=== PATIENT | female | born 1985 | race American Indian/Alaskan Native ===

== ENCOUNTER 2017-01-28 08:23 | Emergency (ER) | payer OTHER ==
[2017-01-28 08:33] VITALS: BMI 25.8
[2017-01-28 08:34] VITALS: BP 135/82; PULSE 94; RESP 18; TEMP 98.3; O2SAT 100
[2017-01-28] MEDS ORDERED: Sodium Chloride 0.9% 1,000 ML IV STA (08:39)
--- NOTE | 2017-01-28 08:48 | ED PDOC ---
Arrival/HPI - General Time Seen by Provider: 01/28/17 08:34 - History of Present Illness Narrative History of Present Illness (Text): 01/28/17 08:35 Serena Schilling is a 31 year old female, whose past medical includes fibroids, who presents to the emergency department complaining of cramps since yesterday. Patient states her pain is consistent with prior menstrual cramps and notes she just got her period yesterday, however her cramps are not normally this bad. Patient notes that she experiences associated vomiting, which she describes to be yellow. Patient has taken Tylenol last night which brought little relief. Patient also states that she had just started taking control pills five days ago. Patient denies any diarrhea, urinary symptoms , or any other complaint at this time. Patient endorses that she is an occasional drinker. PMD: Dr. Julian Buyer Assistant: Dr. Sharri Gan Time/Duration: 24 hours Symptom Onset: Gradual Symptom Course: Unchanged Severity Level: Mild Activities at Onset: Rest Context: Home Associated Symptoms (Text): 01/28/17 09:10 Patient's menstrual cycle began yesterday. She complains of severe menstrual cramps beginning yesterday. She states that she has cramps like this every other cycle. History of uterine fibroids. She also has some nausea and vomiting. She began control pills 5 days ago. No fever or chills. No injury or trauma. Past Medical History - Provider Review Nursing Documentation Reviewed: Yes - Infectious Disease Hx of Infectious Diseases: None - Tetanus Immunization Tetanus Immunization: Unknown - Past Medical History Past Medical History: No Previous - Cardiac Hx Cardiac Disorders: No - Hematological/Oncological Hx Anemia: Yes - Musculoskeletal/Rheumatological Hx Back Pain: Yes - Genitourinary/Gynecological Other/Comment: FIBROIDS - Psychiatric Hx Psychophysiologic Disorder: No Hx Depression: No Hx Emotional Abuse: No Hx Physical Abuse: No Hx Substance Use: No - Past Surgical History Past Surgical History: No Previous - Anesthesia Hx Anesthesia: Yes Hx Anesthesia Reactions: No Hx Malignant Hyperthermia: No - Suicidal Assessment Feels Threatened In Home Enviroment: No Family/Social History - Physician Review Nursing Documentation Reviewed: Yes Family/Social History: No Known Family HX Smoking Status: Never Smoked Hx Alcohol Use: Yes Hx Substance Use: No Hx Substance Use Treatment: No Allergies/Home Meds Allergies/Adverse Reactions: Allergies No Known Allergies Allergy (Verified 05/25/16 06:49) Review of Systems - Physician Review All systems were reviewed & negative as marked: Yes - Review of Systems Constitutional: absent: Fevers, Night Sweats Eyes: absent: Vision Changes ENT: absent: Hearing Changes Respiratory: absent: SOB, Cough Cardiovascular: absent: Chest Pain Gastrointestinal: Abdominal Pain (Cramps), Nausea, Vomiting Genitourinary Female: absent: Dysuria, Frequency, Hematuria, Urine Output Changes Musculoskeletal: absent: Back Pain, Neck Pain Skin: absent: Pruritis Neurological: absent: Headache, Dizziness Endocrine: absent: Polyuria Hemo/Lymphatic: absent: Easy Bleeding Psychiatric: absent: Depression Physical Exam Vital Signs Reviewed: Yes Vital Signs Temp Pulse Resp BP Pulse Ox 01/28/17 08:34 98.3 F 94 H 18 135/82 100 Temperature: Afebrile Blood Pressure: Normal Pulse: Regular Respiratory Rate: Normal Appearance: Positive for: Well-Appearing, Non-Toxic, Uncomfortable Pain Distress: Moderate Mental Status: Positive for: Alert and Oriented X 3 - Systems Exam Head: Present: Atraumatic, Normocephalic Pupils: Present: PERRL Extroacular Muscles: Present: EOMI Conjunctiva: Present: Normal Mouth: Present: Moist Mucous Membranes Pharnyx: No: ERYTHEMA, EXUDATE, TONSILS ENLARGED Respiratory/Chest: Present: Clear to Auscultation, Good Air Exchange. No: Respiratory Distress, Accessory Muscle Use Cardiovascular: Present: Regular Rate and Rhythm, Normal S1, S2. No: Murmurs Abdomen: Present: Normal Bowel Sounds, Scars. No: Tenderness, Distention, Peritoneal Signs, Rebound, Guarding Upper Extremity: Present: Normal Inspection. No: Cyanosis, Edema Lower Extremity: Present: Normal Inspection. No: Edema Neurological: Present: GCS=15, CN II-XII Intact, Speech Normal, Motor Func Grossly Intact Skin: Present: Warm, Dry, Normal Color. No: Rashes Psychiatric: Present: Alert, Oriented x 3, Normal Insight, Normal Concentration Medical Decision Making ED Course and Treatment: 01/28/17 08:35 Impression: 31 year old female complaining of menstrual cramps since yesterday. Plan: -- Urinalysis, HCG -- Labs -- Toradol, Zofran, and IV Fluids -- Reassess and disposition Prior Visits: Notes and results from previous visits were reviewed. Patient last seen in ED on 11/04/16 for lower abdominal pain for approximately 1 hour. Patient was discharged home. Progress Notes: 01/28/17 10:04 Symptoms mildly improved 01/28/17 10:08 No vomiting while in the emergency department - Lab Interpretations Lab Results: 01/28/17 08:40 01/28/17 08:40 Lab Results 01/28/17 08:40: Sodium 136, Potassium 3.9, Chloride 103, Carbon Dioxide 27, Anion Gap 10, BUN 13, Creatinine 0.8, Est GFR ( Amer) > 60, Est GFR (Non- Af Amer) > 60, Random Glucose 91, Calcium 9.8, Total Bilirubin 0.2, AST 25, ALT 24, Alkaline Phosphatase 77, Total Protein 7.7, Albumin 4.1, Globulin 3.7, Albumin/Globulin Ratio 1.1, Lipase 94 01/28/17 08:40: Urine Color Yellow, Urine Appearance Clear, Urine pH 6.0, Ur Specific [place] 1.020, Urine Protein Negative, Urine Glucose (UA) Negative, Urine Ketones Negative, Urine Blood Large H, Urine Nitrate Negative, Urine Bilirubin Negative, Urine Urobilinogen 0.2, Ur Leukocyte Esterase Trace H, Urine RBC Tntc, Urine WBC 2 - 5, Ur Epithelial Cells 4 - 5, Urine Bacteria Mod, Urine HCG, Qual Negative 01/28/17 08:40: WBC 16.3 H, RBC 4.26, Hgb 11.9 L, Hct 36.6, MCV 85.9, MCH 27.9, MCHC 32.5, RDW 14.9 H, Plt Count 314, MPV 9.6, Gran % 88.5 H, Lymph % (Auto) 6.4 L, [place] % (Auto) 4.7, Eos % (Auto) 0.2 L, Baso % (Auto) 0.2, Gran # 14.38 H , Lymph # 1.0 L, [place] # 0.8 H, Eos # 0.0, Baso # 0.03 I have reviewed the lab results: Yes - Medication Orders Current Medication Orders: Discontinued Medications Sodium Chloride (Sodium Chloride 0.9%) 1,000 mls @ 1,000 mls/hr IV .Q1H STA Stop: 01/28/17 09:38 Last Admin: 01/28/17 08:55 Dose: 1,000 mls/hr Ketorolac Tromethamine (Toradol) 30 mg IVP STAT STA Stop: 01/28/17 08:40 Last Admin: 01/28/17 08:55 Dose: 30 mg Ondansetron HCl (Zofran Inj) 4 mg IVP STAT STA Stop: 01/28/17 08:40 - Scribe Statement The provider has reviewed the documentation as recorded by the Moreliaibstanislav Reyes Provider Scribe Attestation: All medical record entries made by the Scribe were at my direction and personally dictated by me. I have reviewed the chart and agree that the record accurately reflects my personal performance of the history, physical exam, medical decision making, and the department course for this patient. I have also personally directed, reviewed, and agree with the discharge instructions and disposition. Disposition/Present on Arrival - Present on Arrival Any Indicators Present on Arrival: No History of DVT/PE: No History of Uncontrolled Diabetes: No Urinary Catheter: No History of Decub. Ulcer: No History Surgical Site Infection Following: None - Disposition Have Diagnosis and Disposition been Completed?: Yes Diagnosis: Dysmenorrhea, Leukocytosis, Nausea and vomiting Disposition: HOME/ ROUTINE Disposition Time: 10:05 Patient Plan: Discharge Patient Problems: Current Active Problems Problem Status Onset Dysmenorrhea Acute Leukocytosis Acute Nausea and vomiting Acute Condition: IMPROVED Discharge Instructions (ExitCare): Dysmenorrhea (ED) Prescriptions: Naproxen [Naprosyn] 500 mg PO BID #14 tab Tramadol HCl [Ultram] 50 mg PO Q6 PRN #14 tab PRN Reason: Pain Ondansetron [Zofran Odt] 4 mg SL Q6 #20 odt Referrals: Conor Mckinnon MD [Primary Care Provider] - Follow up with primary
[2017-01-28 09:09] LABS: ADD MANUAL DIFF? NO
[2017-01-28 09:22] LABS: URINE BILIRUBIN NEGATIVE (NEGATIVE); URINE BLOOD LARGE (NEGATIVE); URINE GLUCOSE (UA) NEGATIVE (NEGATIVE); URINE KETONE NEGATIVE (NEGATIVE); URINE LEUKOCYTE ESTERASE TRACE Leu/uL (NEGATIVE); URINE PROTEIN NEGATIVE mg/dL (<30 mg/dL); URINE UROBILINOGEN 0.2 E.U./dL (<1 E.U./dL)
[2017-01-28 09:25] LABS: ALB/GLOB RATIO 1.1 (1.1-1.8); ALKALINE PHOSPHATASE 77 U/L (38-133); ALT/SGPT 24 U/L (7-56); AST/SGOT 25 U/L (15-39); BILIRUBIN,TOTAL 0.2 mg/dL (0.2-1.3); BLOOD UREA NITROGEN 13 mg/dL (7-21); CALCIUM 9.8 mg/dL (8.4-10.5); CARBON DIOXIDE 27 mmol/L (21-33); CHLORIDE 103 mmol/L (98-107); GFR AFRICAN-AMERICAN > 60; GLUCOSE,RANDOM 91 mg/dL (70-110); LIPASE 94 U/L (23-300); POTASSIUM 3.9 mmol/L (3.6-5.0); SODIUM 136 mmol/L (132-148); TOTAL PROTEIN 7.7 g/dL (5.8-8.3)
[2017-01-28 09:29] LABS: URINE APPEARANCE CLEAR (CLEAR); URINE COLOR YELLOW (YELLOW)
[2017-01-28 09:39] LABS: BASO # 0.03 K/mm3 (0.0-2.0); BASO % 0.2 % (0.0-3.0); EOS % 0.2 % (1.5-5.0); GRAN # 14.38 (1.4-6.5); GRAN % 88.5 % (50.0-68.0); HEMATOCRIT 36.6 % (36.0-48.0); LYMPH % 6.4 % (22.0-35.0); MEAN CELL VOLUME 85.9 fL (80.0-105.0); MEAN CORPUSCULAR HEMOGLOBIN 27.9 pg (25.0-35.0); MEAN CORPUSCULAR HGB CONC 32.5 g/dl (31.0-37.0); MEAN PLATELET VOLUME 9.6 fl (7.0-11.0); MONO # 0.8 (0.1-0.6); MONO % 4.7 % (1.0-6.0); PLATELET COUNT 314 10^3/uL (120.0-450.0); RED CELL DISTRIBUTION WIDTH 14.9 % (11.5-14.5); WHITE BLOOD COUNT 16.3 10^3/ul (4.5-11.0)
[2017-01-28 09:53] LABS: URINE BACTERIA MOD (NEG); URINE RBC TNTC /hpf (0-2)
== END 2017-01-28 10:54 | disposition home or self-care (01) ==
LOC: ED 08:23
DX: N94.6 Dysmenorrhea, unspecified (principal); D72.829 Elevated white blood cell count, unspecified; R11.2 Nausea with vomiting, unspecified
CPT/HCPCS: 80053; 81001; 83690; 84703; 85025; 96374; 99283; J1885; J7040

== ENCOUNTER 2017-03-31 10:33 | Emergency (ER) | payer OTHER ==
--- NOTE | 2017-03-31 10:35 | ED PDOC ---
Arrival/HPI - General Time Seen by Provider: 03/31/17 10:34 Historian: Patient - History of Present Illness Narrative History of Present Illness (Text): 03/31/17 10:34 31 y/o female, no significant pmh, nkda, c/o rt. ankle pain x 3 days with no fall or trauma. Aching pain, aggravated by walking, no redness skin, admits mild calf pain, no numbness or tingling, no skin discoloration, no other medical or psychological complaints. Past Medical History - Provider Review Nursing Documentation Reviewed: Yes - Infectious Disease Hx of Infectious Diseases: None - Tetanus Immunization Tetanus Immunization: Unknown - Past Medical History Past Medical History: No Previous - Cardiac Hx Cardiac Disorders: No - Pulmonary Hx Respiratory Disorders: No - Neurological Hx Neurological Disorder: No - HEENT Hx HEENT Disorder: No - Renal Hx Renal Disorder: No - Endocrine/Metabolic Hx Endocrine Disorders: No - Hematological/Oncological Hx Anemia: Yes - Integumentary Hx Dermatological Disorder: No - Musculoskeletal/Rheumatological Hx Back Pain: Yes - Gastrointestinal Hx Gastrointestinal Disorders: No - Genitourinary/Gynecological Other/Comment: FIBROIDS - Psychiatric Hx Psychophysiologic Disorder: No Hx Depression: No Hx Emotional Abuse: No Hx Physical Abuse: No Hx Substance Use: No - Past Surgical History Past Surgical History: No Previous - Anesthesia Hx Anesthesia: Yes Hx Anesthesia Reactions: No Hx Malignant Hyperthermia: No - Suicidal Assessment Feels Threatened In Home Enviroment: No Family/Social History - Physician Review Nursing Documentation Reviewed: Yes Family/Social History: Unknown Family HX Smoking Status: Never Smoked Hx Alcohol Use: Yes Hx Substance Use: No Hx Substance Use Treatment: No Allergies/Home Meds Allergies/Adverse Reactions: Allergies No Known Allergies Allergy (Verified 03/31/17 10:44) Home Medications: Home Meds Medication Instructions Recorded Confirmed Ferrous Sulfate [Iron] 1 tab PO DAILY 03/31/17 03/31/17 Review of Systems - Review of Systems Constitutional: absent: Fatigue, Fevers Eyes: absent: Vision Changes ENT: absent: Hearing Changes Respiratory: absent: SOB, Cough Cardiovascular: absent: Chest Pain Gastrointestinal: absent: Abdominal Pain, Nausea, Vomiting Musculoskeletal: Arthralgias. absent: Back Pain, Neck Pain, Myalgias Skin: absent: Rash, Pruritis, Skin Lesions Physical Exam Vital Signs Temp Pulse Resp BP Pulse Ox 03/31/17 11:00 98.6 F 88 18 130/85 100 - Systems Exam Head: Present: Atraumatic, Normocephalic Pupils: Present: PERRL Extroacular Muscles: Present: EOMI Conjunctiva: Present: Normal Mouth: Present: Moist Mucous Membranes Neck: Present: Normal Range of Motion Respiratory/Chest: Present: Clear to Auscultation, Good Air Exchange. No: Respiratory Distress, Accessory Muscle Use Cardiovascular: Present: Regular Rate and Rhythm, Normal S1, S2. No: Murmurs Abdomen: Present: Normal Bowel Sounds. No: Tenderness, Distention, Peritoneal Signs Back: Present: Normal Inspection Upper Extremity: Present: Normal Inspection. No: Cyanosis, Edema Lower Extremity: Present: Normal Inspection, Other (Rt. ankle: +ttp on the lateral malleolus, no swelling, negative ron and watson signs, negative ron and watson, FROM without limitation, sensation intact, motor 5/5, +DPPT pulses, capillary refill< 2 seconds, neurovascular intact. ). No: Edema Neurological: Present: GCS=15, Speech Normal, Motor Func Grossly Intact, Gait Normal, Memory Normal Skin: Present: Warm, Dry, Normal Color. No: Rashes Psychiatric: Present: Alert, Oriented x 3, Normal Insight, Normal Concentration Medical Decision Making ED Course and Treatment: 03/31/17 11:02 -xray and sonogram -motrin -lokesh wrap/crutches. 03/31/17 11:18 -Rt. ankle: normal right ankle as interpreted by radiologist. -I am clinically concerning about the tendon/ligamentous or possibly underlying fracture, posterior splint applied by me with the lokesh wrap. -RLE Venuous Doppler: as preliminary report, no acute DVT -Discharge home with naproxen, posterior splint, lokesh wrap, crutches, ice compression, non-weight bearing, follow up with your own pmd and orthopedic within 2 days, return to the ER for any new or worsening signs or symptoms. - RAD Interpretation Radiology Orders: 03/31/17 10:57 ANKLE RIGHT 3 VIEWS ROUTINE [RAD] Stat DUPLEX LOWER EXTRM VEIN RIGHT [US] Stat Rt. ankle: normal right ankle RLE Venuous Doppler: as preliminary report, no acute DVT Carton Counter Feeder: Radiologist - Medication Orders Current Medication Orders: Discontinued Medications Ibuprofen (Motrin Tab) 600 mg PO STAT STA Stop: 03/31/17 10:59 Last Admin: 03/31/17 11:03 Dose: - PA / RESEARCH GENETICIST / Resident Statement / has reviewed & agrees with the documentation as recorded. Disposition/Present on Arrival - Present on Arrival Any Indicators Present on Arrival: No History of DVT/PE: No History of Uncontrolled Diabetes: No Urinary Catheter: No History of Decub. Ulcer: No History Surgical Site Infection Following: None - Disposition Have Diagnosis and Disposition been Completed?: Yes Diagnosis: Ankle pain Disposition: HOME/ ROUTINE Disposition Time: 11:03 Patient Plan: Discharge Condition: GOOD Additional Instructions: -Discharge home with naproxen, lokesh wrap, crutches, ice compression, non-weight bearing, follow up with your own pmd and orthopedic within 2 days, return to the ER for any new or worsening signs or symptoms. Prescriptions: Naproxen 500 mg PO BID PRN #20 tab PRN Reason: Other Referrals: Conor Mckinnon MD [Primary Care Provider] - Follow up with primary Zay Ramsay MD [Staff Provider] - Follow up with primary Forms: [employer] (Maldivian), WORK NOTE
[2017-03-31 10:59] VITALS: BMI 25.1
[2017-03-31 11:40] VITALS: BP 130/85; PULSE 88; RESP 18; TEMP 98.6; O2SAT 100
--- NOTE | 2017-03-31 12:30 | RAD ---
PROCEDURE: Right Ankle Radiographs. HISTORY: ankle pain x 3 days COMPARISON: None FINDINGS: BONES: Normal. No fracture. JOINTS: Normal. No osteoarthritis. Ankle mortise maintained. Talar dome intact SOFT TISSUES: Normal. OTHER FINDINGS: None. IMPRESSION: Normal right ankle radiographs.
--- NOTE | 2017-03-31 12:55 | US ---
PROCEDURE: Right lower extremity venous US HISTORY: Leg pain and swelling. Evaluate for DVT. PHYSICIAN(S): Randolph Mosher M.D. TECHNIQUE: Duplex sonography and color-flow Doppler with graded compression were used to evaluate the deep venous system of the right lower extremity. FINDINGS: The visualized deep venous system of the right lower extremity is sonographically normal and compressible. Normal waveforms and augmentation are seen. There is no sonographic evidence for deep venous thrombosis in the visualized segments of the right lower extremity. IMPRESSION: 1. No sonographic evidence for deep venous thrombosis in the visualized segments of the right lower extremity.
== END 2017-03-31 12:24 | disposition home or self-care (01) ==
LOC: ED 10:33
DX: M25.571 Pain in right ankle and joints of right foot (principal)

== ENCOUNTER 2018-06-20 22:10 | Emergency (ER) | payer MEDICAID, OTHER ==
[2018-06-20 22:10] VITALS: BMI 25.8
== END 2018-06-20 22:33 | disposition left against medical advice (07) ==
LOC: ED 22:10
DX: Z02.89 Encounter for other administrative examinations (principal); N93.9 Abnormal uterine and vaginal bleeding, unspecified